=== PATIENT | female | born 1975 | race Caucasian/White ===

== ENCOUNTER 2018-04-30 13:45 | Emergency (ER) | payer MEDICARE, MEDICAID ==
[2018-04-30] MEDS ORDERED: Ketorolac INJ* 30 MG/ML 1 ML VIAL IV PUSH ONE (15:24)
[2018-04-30] MEDS ORDERED: NS 0.9% 1000 ML* 1,000 ML IV ONE (15:24)
[2018-04-30] MEDS ORDERED: Linezolid 600 MG IVPREMIX(*) 600 MG/300 ML BAG IVPB ONE (15:26)
[2018-04-30] MEDS ORDERED: Piperacillin/Tazobac ADVAN(*) 3.375 GM in NS 0.9% 100 ML* 100 ML IVPB ONE (15:26)
[2018-04-30 15:44] LABS: ABS Basophils 0.1 10^3/ul (0-0.2); ABS Eosinophils 0.1 10^3/ul (0-0.6); ABS Lymphocytes 1.4 10^3/ul (1.0-4.8); ABS Monocytes 0.8 10^3/ul (0-0.8); ABS Neutrophils 5.6 10^3/ul (1.5-7.7); ABS Nucleated RBC 0 10^3/ul; Eosinophil % 1.2 % (0-6); Hematocrit 38 % (35-47); Hemoglobin 13.1 g/dl (12.0-16.0); Lymphocyte % 17.7 % (25-47); Mean Corpuscular HGB Conc 34 g/dl (31-36); Mean Corpuscular Hemoglobin 30 pg (27-31); Mean Corpuscular Volume 89 fL (80-97); Mean Platelet Volume 9.1 um3 (7.4-10.4); Nucleated Red Blood Cells % 0; Platelet Count 201 10^3/ul (150-450); Red Blood Count 4.31 10^6/ul (4.00-5.40); Red Cell Distribution Width 14 % (10.5-15); White Blood Count 7.9 10^3/ul (3.5-10.8)
[2018-04-30 16:06] LABS: EGFR Non-African American 70.1 (>60)
[2018-04-30] MEDS ORDERED: Lidocaine 2% PF * 5 ML VIAL ONE (16:21)
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
[2018-04-30] MEDS ORDERED: Sulfamethox/Trimethoprim DS 800/160* TAB PO ONE (17:58)
[2018-04-30 18:38] VITALS: BP 138/81
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
--- NOTE | 2018-05-06 14:10 | PN ---
Progress Note - Progress Note Date of Service: 04/30/18 Note: Pt. seen in ER 04/30 for abscess. Abscess drained and she was placed on bactrim. Final wound culture is growing strep. intermedius which is not susceptible to bactrim. Attempted to call pt. today at 1405, no answer. Pt. does not have a voicemail box. Will send certified letter.
== END 2018-04-30 18:37 | disposition home or self-care (01) ==
LOC: ED 13:45
DX: L02.414 Cutaneous abscess of left upper limb (principal); Z88.3 Allergy status to other anti-infective agents; F17.200 Nicotine dependence, unspecified, uncomplicated
CPT/HCPCS: 10060; 36415; 80053; 83605; 84702; 85025; 85652; 86141; 86703; 87040; 87070; 87077; 87186; 87205; 87640; 87641; 96361; 96365; 96374; 99283; A9270-GY; J1885; J2020; J2543

== ENCOUNTER 2019-11-22 22:28 | Emergency (ER) | payer MEDICARE, MEDICAID ==
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
[2019-11-22 23:30] LABS: Urine Appearance Clear; Urine Bilirubin Negative (Negative); Urine Blood 1+ (Negative); Urine Color Straw; Urine Glucose Negative (Negative); Urine Ketones Negative (Negative); Urine Nitrite Negative (Negative); Urine Protein Negative (Negative); Urine Specific Gravity 1.004 (1.010-1.030); Urine Urobilinogen Negative (Negative)
[2019-11-22 23:35] LABS: Urine Bacteria 1+ (Absent); Urine Red Blood Cell Absent (Absent); Urine Squamous Epithelial Cell Present (Absent); Urine White Blood Cell Trace(0-5/hpf) (Absent)
[2019-11-22 23:45] LABS: Urine Benzodiazepine Screen None Detected (None Detect); Urine Opiates Screen None Detected (None Detect)
[2019-11-23 00:11] LABS: ABS Basophils 0.1 10^3/ul (0-0.2); ABS Eosinophils 0.1 10^3/ul (0-0.6); ABS Lymphocytes 3.1 10^3/ul (1.0-4.8); ABS Monocytes 0.8 10^3/ul (0-0.8); ABS Neutrophils 6.5 10^3/ul (1.5-7.7); Eosinophil % 0.7 %; Hematocrit 41 % (35-47); Hemoglobin 14.5 g/dL (12.0-16.0); Lymphocyte % 29.7 %; Mean Corpuscular HGB Conc 35 g/dL (31-36); Mean Corpuscular Hemoglobin 33 pg (27-31); Mean Corpuscular Volume 94 fL (80-97); Mean Platelet Volume 9.6 fL (7.4-10.4); Nucleated Red Blood Cells % 0.1; Platelet Count 269 10^3/uL (150-450); Red Blood Count 4.43 10^6 /uL (3.70-4.87); Red Cell Distribution Width 15 % (10-15); White Blood Count 10.6 10^3/uL (3.5-10.8)
[2019-11-23 00:29] LABS: Albumin 4.6 g/dL (3.2-5.2); Albumin/Globulin Ratio 1.5 (1-3); BUN/Creatinine Ratio 8.2 (8-20); Calcium 8.9 mg/dL (8.6-10.3); EGFR African American 104.3 (>60); EGFR Non-African American 86.2 (>60); Total Bilirubin 0.3 mg/dL (0.2-1.0); Total Protein 7.6 g/dL (6.4-8.9)
[2019-11-23 00:35] LABS: HCG Pregnancy 1.79 mIU/mL
[2019-11-23 00:45] LABS: INR 0.98 (0.82-1.09)
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
--- NOTE | 2019-11-23 10:31 | ED ---
Progress - Progress Note Progress Note: Patient is a sign-out at 07:00 on 11/23/[address] Cherry Torres MD to Dr. Zheng Smith MD at shift change, pending further workup and disposition. At 10:31, patients nurse states the patient has improved and appears to be sober. At 10:32, patient is speaking coherently. Patient will be discharged with a diagnosis of alcohol intoxication, cocaine abuse, and fall. Follow up with PCP in 1-3 days. Re-Evaluation - Re-Evaluation First Eval Re-Evaluation Time: 10:31 Change: Improved Comment: At 10:31, patients nurse states the patient has improved and appears to be sober. Second Eval Re-Evaluation Time: 10:32 Change: Improved Comment: At 10:32, patient is speaking coherently. Course/Dx - Course Course Of Treatment: Patient is signed out to myself pending sobriety. Patient given last night with an alcohol overdose and cocaine use. Patient fell and had images performed which were negative for any injury. Patient was monitored until she was sober and was sent home in a Medicaid. - Diagnoses Provider Diagnoses: Alcohol intoxication, Cocaine abuse, Fall Discharge ED - Sign-Out/Discharge Documenting (check all that apply): Patient Departure - Discharge, Receiving Sign-Out Receiving patient FROM: Cherry Torres - Patient is a sign-out at 07:[address] Cherry Torres MD to Dr. Zheng Smith MD at shift change, pending further workup and disposition. - Discharge Plan Condition: Stable Disposition: HOME Patient Education Materials: Cocaine Abuse (ED), Alcohol Intoxication (ED) Referrals: Nicole HOWELL,Yonathan Abrams [Primary Care Provider] - Additional Instructions: PLEASE RETURN TO EMERGENCY DEPARTMENT FOR SLURRED SPEECH, ONE-SIDED WEAKNESS, VISUAL CHANGES, OR ANY NEW OR WORSENING SYMPTOMS. Please follow up with your primary care physician. Please make all follow-ups in 1-3 days unless I advise you otherwise. STOP USING DRUGS AND ALCOHOL. - Billing Disposition and Condition Condition: STABLE Disposition: Home - Attestation Statements Document Initiated by Scribe: Yes Documenting Scribe: Elaine Pinto Provider For Whom Scribe is Documenting (Include Credential): Zheng Smith MD Scribe Attestation: I, Elaine Pinto, scribed for Zheng Smith MD on 11/23/19 at 1800. Scribe Documentation Reviewed: Yes Provider Attestation: The documentation as recorded by the scribe, Elaine Pinto accurately reflects the service I personally performed and the decisions made by me, Zheng Smith MD Status of Scribe Document: Viewed
[2019-11-23 10:47] VITALS: BP 0/0
== END 2019-11-23 10:44 | disposition home or self-care (01) ==
LOC: ED 22:28
DX: F10.129 Alcohol abuse with intoxication, unspecified (principal); F14.10 Cocaine abuse, uncomplicated; Z91.81 History of falling; F17.210 Nicotine dependence, cigarettes, uncomplicated
CPT/HCPCS: 36415; 70450; 70486; 80053; 80307; 80320; 81003; 81015; 83605; 84702; 85025; 85610; 87086; 99282; G0480